=== PATIENT | male | born 1950 | race Caucasian/White ===

== ENCOUNTER 2022-08-30 06:35 | Day surgery (SDC) | payer MEDICARE ==
[2022-08-30] MEDS ORDERED: Midazolam 1 MG/ML 2 ML SDV IV ONE (06:36)
[2022-08-30] MEDS ORDERED: fentaNYL 100 MCG/2 ML SDV IV ONE (06:36)
[2022-08-30] MEDS ORDERED: Lactated Ringers 1,000 ML IV PRN (06:45)
[2022-08-30] MEDS: Sodium Chloride 0.9% 10 ML Syringe FLUSH PRN (07:38)
[2022-08-30] MEDS: acetaZOLAMIDE 500 MG Cap.ER PO ONE (08:30)
== END 2022-08-30 09:10 | disposition home or self-care (01) ==
LOC: FB.SDS 06:35
PROVIDERS: ATTEND Ophthalmology
DX: H26.9 Unspecified cataract (principal); I25.10 Atherosclerotic heart disease of native coronary artery without angina pectoris; E78.5 Hyperlipidemia, unspecified; I10 Essential (primary) hypertension; F17.210 Nicotine dependence, cigarettes, uncomplicated; Z88.8 Allergy status to other drugs, medicaments and biological substances; Z79.899 Other long term (current) drug therapy
CPT/HCPCS: 00142; 66984; A9270; J2250; J3010; J3490; V2632

== ENCOUNTER 2022-09-27 06:39 | Day surgery (SDC) | payer MEDICARE ==
[2022-09-27] MEDS ORDERED: Midazolam 1 MG/ML 2 ML SDV IV ONE (06:40)
[2022-09-27] MEDS ORDERED: fentaNYL 100 MCG/2 ML SDV IV ONE (06:40)
[2022-09-27] MEDS ORDERED: Sodium Chloride 0.9% 10 ML Syringe IV ONE (06:40)
[2022-09-27] MEDS ORDERED: Sodium Chloride 0.9% 10 ML Syringe FLUSH PRN (06:45)
[2022-09-27] MEDS ORDERED: Lactated Ringers 1,000 ML IV PRN (06:45)
[2022-09-27] MEDS ORDERED: acetaZOLAMIDE 500 MG Cap.ER PO ONE (08:30)
== END 2022-09-27 09:00 | disposition home or self-care (01) ==
LOC: FB.SDS 06:39
PROVIDERS: ATTEND Ophthalmology
DX: H25.013 Cortical age-related cataract, bilateral (principal); I25.10 Atherosclerotic heart disease of native coronary artery without angina pectoris; E78.5 Hyperlipidemia, unspecified; I10 Essential (primary) hypertension; I25.2 Old myocardial infarction; F17.210 Nicotine dependence, cigarettes, uncomplicated; Z79.899 Other long term (current) drug therapy; Z88.8 Allergy status to other drugs, medicaments and biological substances
CPT/HCPCS: 00142; A9270-GY; J2250; J3010; J3490; V2632